=== PATIENT | female | born 1985 | race African-American/Black ===

== ENCOUNTER 2018-07-01 00:46 | Emergency (ER) | payer SELFPAY ==
[~2018-07-01] VITALS: Ht 160 cm; Wt 77.1 kg
[~2018-07-01 00:46] MED LIST: DOXYCYCLINE PO; TYLENOL WITH CODEINE PO
[2018-07-01] MEDS ORDERED: PIRMELLA (01:00)
--- NOTE | 2018-07-01 01:00 | NUR ---
Patient ambulated with stable gait. AAOx4. Speech clear, speaks in complete sentences. No neuro deficits. Patient came with c/o 4th digit swelling of the RHAND. Patient noticed it prior to arrival when she attempted to take ring on at home. Patient failed to remove it and drove herself to be seen here for removal. Patient still has sensation on 4th digit and is able to feel tactile stimuli. Respiratory even and unlabored, no cough, no sob. All pulses palpable. No GI/ distress. Patient in bed at lowest position, side rails upx2, call light within reach. Fall precautions implemented per protocol.
--- NOTE | 2018-07-01 02:38 | NUR ---
TITANIUM RING WAS CUT AND REMOVED, DR GAMEZ EVALUATING THE PT
[2018-07-01 03:10] LABS: *URINE HCG, QUAL NEGATIVE (NEGATIVE)
[2018-07-01] MEDS ORDERED: KETOROLAC TROMETHAMINE 30 MG INJ IM ONE (03:15)
[2018-07-01] MEDS ORDERED: KETOROLAC TROMETHAMINE 30 MG INJ ONE (03:16)
--- NOTE | 2018-07-01 04:29 | NUR ---
Patient discharged to home in stable conditon. Written and verbal after care instructions given. Patient verbalizes understanding of instructions. Patient ambulated with stable gait.
[2018-07-01 04:30] VITALS: BP 145/82
== END 2018-07-01 04:31 | disposition home or self-care (01) ==
LOC: ER 00:47
DX: R22.31 Localized swelling, mass and lump, right upper limb (principal); Z79.2 Long term (current) use of antibiotics; Z79.899 Other long term (current) drug therapy
CPT/HCPCS: 73140; 84703; 96372; 99284; J1885; A4663

== ENCOUNTER 2019-01-21 21:05 | Emergency (ER) | payer BC ==
[~2019-01-21] VITALS: Ht 162.6 cm; Wt 68.0 kg
[~2019-01-21 21:05] MED LIST changes: -DOXYCYCLINE PO; +PIRMELLA; -TYLENOL WITH CODEINE PO
[2019-01-21] MEDS ORDERED: FLUORESCEIN SODIUM 1 MG STRIP ONE (21:16)
[2019-01-21] MEDS ORDERED: TETRACAINE HCL 0.5% OPHT DROP 2 ML BOTTLE ONE (21:16)
--- NOTE | 2019-01-21 21:51 | NUR ---
PATIENT AMBULATORY WITH RIGHT EYE BURNING WAS WASHING AND DROPPED A BOTTLE OF AMMONIA AND SPALSHED IN HER EYE
--- NOTE | 2019-01-21 21:54 | NUR ---
SEEN BY MD ORDERS NOTED AND CARRIED
[2019-01-21 21:55] VITALS: BP 129/89
== END 2019-01-21 21:56 | disposition home or self-care (01) ==
LOC: ER 21:12
DX: H10.211 Acute toxic conjunctivitis, right eye (principal); Z79.899 Other long term (current) drug therapy
CPT/HCPCS: A4663